=== PATIENT | female | born 1970 | race Caucasian/White ===

== ENCOUNTER 2023-09-13 11:27 | Emergency (ER) | payer MEDICAID ==
[~2023-09-13] VITALS: Ht 167.6 cm; Wt 90.7 kg
[2023-09-13 11:31] VITALS: BP_SYST 118; PULSE 72; RESP 18; TEMP 98.3; O2SAT 98
[2023-09-13] MEDS: BACITRACIN 1 GM OINT TP ONE (11:59)
[2023-09-13] MEDS: IBUPROFEN 600 MG TABLET PO ONE (12:00)
[2023-09-13] MEDS: ACETAMINOPHEN 500 MG TABLET PO ONE (12:00)
[2023-09-13] MEDS ORDERED: BACITRACIN 1 GM OINT TP ONE (12:14)
[2023-09-13 14:25] VITALS: BP_SYST 132; PULSE 82; RESP 18; TEMP 97.6; O2SAT 98
== END 2023-09-13 14:33 | disposition home or self-care (01) ==
LOC: SED 11:27
DX: S62.337A Displaced fracture of neck of fifth metacarpal bone, left hand, initial encounter for closed fracture (principal); S00.81XA Abrasion of other part of head, initial encounter; S40.212A Abrasion of left shoulder, initial encounter; V00.841A Fall from standing electric scooter, initial encounter; Y93.89 Activity, other specified; Y92.89 Other specified places as the place of occurrence of the external cause; Y99.8 Other external cause status
CPT/HCPCS: 70450-TC; 73030; 99284